=== PATIENT | female | born 1985 | race Caucasian/White ===

== ENCOUNTER 2024-04-18 10:14 | Emergency (ER) | payer OTHER ==
[~2024-04-18] VITALS: Ht 165.1 cm; Wt 118.4 kg
[2024-04-18] MEDS ORDERED: FERR325T14 PO (10:23)
[2024-04-18] MEDS ORDERED: ADV500INH INH (10:25)
[2024-04-18 11:29] LABS: BASO # 0.1 10^3/uL (0.0-0.2); BASO % 1.1 % (0.0-1.0); EOS # 0.2 10^3/uL (0.0-0.5); EOS % 3.2 % (0.0-3.0); HEMATOCRIT 37.4 % (36.0-47.0); HEMOGLOBIN 12.7 g/dl (12.0-15.5); LYMPH # 1.2 10^3/uL (1.5-5.0); LYMPH % 22.7 % (24.0-44.0); MEAN CORPUSCULAR HEMOGLOBIN 31.1 pg (27.0-33.0); MEAN CORPUSCULAR VOLUME 91.4 fl (80.0-96.0); MONO # 0.7 10^3/uL (0.0-0.8); MONO % 13.6 % (2.0-8.0); NEUTROPHILS # 3.2 10^3/uL (1.5-8.5); PLATELET COUNT, AUTOMATED 207 10^3/uL (150-450); RED BLOOD COUNT 4.09 10^6/uL (4.00-5.40); WHITE BLOOD COUNT 5.4 10^3/uL (4.0-10.0)
[2024-04-18 11:51] LABS: LIPASE 28 U/L (12-53)
[2024-04-18 11:53] LABS: ALBUMIN 3.8 G/DL (3.2-5.2); ALKALINE PHOSPHATASE 76 U/L (35-104); ALT/SGPT 19 U/L (7.0-40); AST/SGOT 24 U/L (<34); BILIRUBIN,DIRECT 0.2 MG/DL (<0.4); BILIRUBIN,TOTAL 0.8 MG/DL (0.3-1.2); TOTAL PROTEIN 6.8 G/DL (5.7-8.2)
[2024-04-18 12:06] LABS: HCG, SERUM QUALITATIVE NEGATIVE (NEGATIVE)
[2024-04-18] MEDS ORDERED: ISOVUE-370 76% 100ML VIAL As Ordered ONE (12:25)
[2024-04-18 14:39] VITALS: BP 138/76; TEMP 98.1; O2SAT 97
== END 2024-04-18 14:43 | disposition home or self-care (01) ==
LOC: M ED 10:14
DX: K80.00 Calculus of gallbladder with acute cholecystitis without obstruction (principal); D25.9 Leiomyoma of uterus, unspecified; Z87.442 Personal history of urinary calculi; Z88.0 Allergy status to penicillin; Z91.048 Other nonmedicinal substance allergy status; Z79.899 Other long term (current) drug therapy
CPT/HCPCS: 36415; 74177; 76705; 80047; 80076; 81001; 83690; 84703; 85025; 87486; 87581; 87633; 87798; 93041; 99284; Q9967

== ENCOUNTER → 2024-07-30 | Outpatient (CLI) | payer OTHER ==
[~2024-07-30] MED LIST: ADVA1AER10 INH; FERR325T14 PO
== END ==
LOC: M WHC 09:59
PROVIDERS: ATTEND Family Medicine
DX: R92.2 Inconclusive mammogram (principal)

== ENCOUNTER → 2024-08-19 | Outpatient (CLI) | payer OTHER | LOC: M WHC 10:16 | PROVIDERS: ATTEND Family Medicine | DX: R92.8 Other abnormal and inconclusive findings on diagnostic imaging of breast (principal); R92.313 Mammographic fatty tissue density, bilateral breasts; N60.12 Diffuse cystic mastopathy of left breast | CPT/HCPCS: 76642; 77065; G0279 ==